=== PATIENT | male | born 1995 | race Caucasian/White ===

== ENCOUNTER 2016-12-05 12:15 | Emergency (ER) | payer OTHER ==
[2016-12-05] MEDS ORDERED: IBUPROFEN 800 MG TABLET PO STA (13:17)
[2016-12-05] MEDS ORDERED: IBUPROFEN 800 MG TABLET PO ONE (13:21)
[2016-12-05] MEDS ORDERED: DOXYCYCLINE 100 MG TABLET PO STA (14:39)
[2016-12-05] MEDS ORDERED: DOXYCYCLINE 100 MG TABLET PO ONE (14:43)
== END 2016-12-05 14:49 | disposition home or self-care (01) ==
DX: M54.2 Cervicalgia (principal); R50.9 Fever, unspecified; D72.829 Elevated white blood cell count, unspecified; F17.200 Nicotine dependence, unspecified, uncomplicated
CPT/HCPCS: 36415; 71020; 80053; 83690; 85025; 86308; 99283; 99284; A9270

== ENCOUNTER 2018-12-10 16:45 | Emergency (ER) | payer OTHER ==
[2018-12-10 16:53] VITALS: BP 140/70
--- NOTE | 2018-12-10 17:01 | ED Physician Documentation ---
PD HPI MALE - Stated complaint Stated Complaint: MALE - Chief complaint Chief Complaint: UTI - History obtained from History obtained from: Patient - History of Present Illness Timing - onset: Today (They just finished having sex around 1130 this morning. He felt a lot of extra pressure when he ejaculated and thought he saw a small amount of blood in the ejaculate. After that he had 3 episodes of hematuria that was painless with a small clot on the first episode. He did has some mild low back pain with this with a does not lateralize and no testicular pain.) Review of Systems Constitutional: denies: Fever, Chills GI: denies: Abdominal Pain, Nausea, Vomiting : reports: Hematuria. denies: Dysuria, Frequency, Hesitancy, Incontinent, Discharge PD PAST MEDICAL HISTORY - Past Surgical History Past Surgical History: Yes HEENT: Tonsil/Adenoidectomy - Present Medications Home Medications: Ambulatory Orders Medication Instructions Recorded Confirmed Ciprofloxacin HCl [Cipro] 500 mg PO BID #14 tablet 12/10/18 - Allergies Allergies/Adverse Reactions: Allergies Allergy/AdvReac Type Severity Reaction Status Date / Time No Known Drug Allergies Allergy Verified 12/10/18 16:52 - Social History Does the pt smoke?: Yes Smoking Status: Current every day smoker Does the pt drink ETOH?: No Does the pt have substance abuse?: No - Immunizations Immunizations are current?: Yes PD ED PE NORMAL - Vitals Vital signs reviewed: Yes - General General: Alert and oriented X 3, No acute distress - Abdomen Abdomen: Normal bowel sounds, Soft, Non tender - Male Male : Other (Normal circumcised male genitalia without obvious urethral discharge or bleeding, nontender testicles with normal lie positive cremaster reflexes bilaterally.) - Back Back: No CVA TTP, No spinal TTP - Neuro Neuro: Alert and oriented X 3, Normal speech Results - Vitals Vitals: Vital Signs - 24 hr 12/10/18 16:50 Temperature 36.7 C Heart Rate 67 Respiratory 18 Rate Blood Pressure 140/70 H O2 Saturation 98 Oxygen O2 Source Room air - Labs Labs: Laboratory Tests 12/10/18 17:02 Urine Color YELLOW Urine Clarity CLEAR Urine pH 6.0 Ur Specific [place] 1.010 Urine Protein NEGATIVE Urine Glucose (UA) NEGATIVE Urine Ketones NEGATIVE Urine Occult Blood TRACE-INTA Urine Nitrite NEGATIVE Urine Bilirubin NEGATIVE Urine Urobilinogen 0.2 (NORMAL) Ur Leukocyte Esterase TRACE H Urine RBC 0-5 Urine WBC 0-3 Ur Squamous Epith Cells NONE SEEN Urine Bacteria None Seen Ur Microscopic Review INDICATED Urine Culture Comments INDICATED PD MEDICAL DECISION MAKING - ED course ED course: 23-year-old gentleman with a small amount of hematuria and dysuria today consistent with bladder infection. No rectal or pelvic pain to suggest prostatitis. Departure - Departure Disposition: 01 Home, Self Care Clinical Impression: Bladder infection Condition: Good Record reviewed to determine appropriate education?: Yes Instructions: ED UTI Cystitis Male Prescriptions: Ciprofloxacin HCl [Cipro] 500 mg PO BID #14 tablet Comments: We will culture your urine, the results should be done in 48-72 hours. If an antibiotic change is necessary we will call you. Return if worse in the meantime, especially if you develop increasing flank pain, fevers, or cannot keep down the medication. Your blood pressure was elevated today on check into the emergency department. This does not mean that you have hypertension, it is a common phenomenon to come to the emergency department and have elevated blood pressure. I recommend that you see your primary care physician within the week to have it rechecked when you are feeling better.
[2018-12-10 17:15] LABS: BILIRUBIN,URINE NEGATIVE (NEGATIVE); GLUCOSE, URINE (UA) NEGATIVE (NEGATIVE); KETONES,URINE (UA) NEGATIVE (NEGATIVE); LEUKOCYTE ESTERASE, URINE TRACE (NEGATIVE); NITRITE,URINE NEGATIVE (NEGATIVE); OCCULT BLOOD,URINE TRACE-INTA (NEGATIVE); PROTEIN,URINE NEGATIVE (NEGATIVE); UROBILINOGEN,URINE 0.2 (NORMAL) E.U./dL (NORMAL)
[2018-12-10 17:20] LABS: CLARITY,URINE CLEAR (CLEAR)
[2018-12-10 17:27] LABS: BACTERIA,URINE None Seen /HPF (None Seen); RBC,URINE 0-5 /HPF (0-5); SQUAMOUS EPITHELIAL CELL,UR NONE SEEN (<= Few)
[2018-12-10] MEDS ORDERED: CIPROFLOXACIN 250 MG TABLET PO STA ×2 (17:27→17:30)
== END 2018-12-10 17:36 | disposition home or self-care (01) ==
LOC: ED 16:45
DX: N30.91 Cystitis, unspecified with hematuria (principal); F17.200 Nicotine dependence, unspecified, uncomplicated
CPT/HCPCS: 81001; 87086; 99283; A9270; 81003